=== PATIENT | female | born 1985 | race Caucasian/White ===

== ENCOUNTER 2016-10-26 10:11 | Emergency (ER) | payer OTHER ==
[~2016-10-26] VITALS: Ht 170.2 cm; Wt 99.0 kg
[2016-10-26 10:16] VITALS: BP 138/82
== END 2016-10-26 13:19 | disposition home or self-care (01) ==
LOC: ED 11:26
DX: R53.1 Weakness (principal); R41.82 Altered mental status, unspecified; J45.909 Unspecified asthma, uncomplicated
CPT/HCPCS: 70450; 93005; 99284

== ENCOUNTER 2017-12-09 19:20 | Emergency (ER) | payer OTHER ==
[~2017-12-09] VITALS: Ht 170.2 cm; Wt 102.8 kg
[2017-12-09 20:08] LABS: BASOPHILS # (AUTO) 0.02 x10^3/uL (0-0.1); BASOPHILS % (AUTO) 0 % (0-1); EOSINOPHILS % (AUTO) 2 % (1-7); LYMPHOCYTES # (AUTO) 4.87 x10^3/uL (1-3.4); LYMPHOCYTES % (AUTO) 50 % (22-44); MD NO; MEAN CORPUSCULAR HEMOGLOBIN 29.9 pg (27.0-34.8); MEAN CORPUSCULAR VOLUME 87.8 fL (80-100); MEAN PLATELET VOLUME 9.2 fL (7.4-10.4); MONOCYTES # (AUTO) 0.59 x10^3/uL (0.2-0.8); MONOCYTES % (AUTO) 6 % (2-9); NEUTROPHILS # (AUTO) 4.15 x10^3/uL (1.8-6.8); NEUTROPHILS % (AUTO) 42 % (42-75); PLATELET COUNT 281 x10^3/uL (130-400); RED BLOOD COUNT 4.56 x10^6/uL (3.82-5.3); RED CELL DISTRIBUTION WIDTH 12.6 % (9.6-15.2)
[2017-12-09 20:17] LABS: ALANINE AMINOTRANSFERASE 22 U/L (12-78); ALBUMIN 3.4 g/dL (3.4-5.0); ANION GAP 6 mmol/L (5-15); CALCIUM 9.4 mg/dL (8.5-10.1); CHLORIDE 109 mmol/L (98-107); CREATININE 1.19 mg/dL (0.55-1.02)
[2017-12-09] MEDS ORDERED: URSO500T8 PO ×2 (20:19)
[2017-12-09] MEDS ORDERED: NORG1TAB7 PO (20:19)
[2017-12-09] MEDS ORDERED: TYLENOL PO (20:20)
[2017-12-09 20:21] LABS: ALKALINE PHOSPHATASE 73 U/L (45-117); BILIRUBIN,TOTAL 0.1 mg/dL (0.2-1.0); TOTAL PROTEIN 7.8 g/dL (6.4-8.2)
[2017-12-09] MEDS ORDERED: OMNIPAQUE 350 MG/ML, 100ML BOTTLE ONE (21:00)
[2017-12-09] MEDS ORDERED: FLUT12HF2 INH (21:36)
[2017-12-09 21:50] LABS: MICROSCOPIC NOT IND
[2017-12-09 21:52] LABS: CULTURE INDICATED? NO
[2017-12-09] MEDS ORDERED: FENTANYL PF 100 MCG/2ML ONE (22:24)
[2017-12-09] MEDS ORDERED: FENTANYL PF 100 MCG/2ML IV ONE (22:30)
[2017-12-09 23:55] VITALS: BP 115/73
[2017-12-09] MEDS ORDERED: KETOROLAC 30 MG/1 ML ONE (23:59)
[2017-12-10] MEDS ORDERED: KETOROLAC 30 MG/1 ML IVPush ONE
== END 2017-12-10 00:27 | disposition home or self-care (01) ==
LOC: ED 21:53
DX: N83.292 Other ovarian cyst, left side (principal)
CPT/HCPCS: 36415; 74177; 76830; 80053; 81003; 83690; 84703; 85025; 96374; 96375; 99285; J1885; J3010; Q9967

== ENCOUNTER 2017-12-26 20:01 | Emergency (ER) | payer OTHER ==
[~2017-12-26] VITALS: Ht 172.7 cm; Wt 100.5 kg
[~2017-12-26 20:01] MED LIST: FLUT12HF2 INH; NORG1TAB7 PO; TYLENOL PO; URSO500T8 PO
[2017-12-26] MEDS ORDERED: SODIUM CHLORIDE FLUSH 10ML SYR IVF ONE (20:30)
[2017-12-26 20:58] LABS: MEAN CORPUSCULAR HEMOGLOBIN 30.7 pg (27.0-34.8); MEAN CORPUSCULAR HGB CONC 34.6 g/dL (32.4-35.8); MEAN CORPUSCULAR VOLUME 88.9 fL (80-100); MEAN PLATELET VOLUME 9.2 fL (7.4-10.4); PLATELET COUNT 305 x10^3/uL (130-400); RED BLOOD COUNT 4.67 x10^6/uL (3.82-5.3); RED CELL DISTRIBUTION WIDTH 12.6 % (9.6-15.2)
[2017-12-26] MEDS ORDERED: METOCLOPRAMIDE 5 MG/ML, 2ML ONE (21:08)
[2017-12-26] MEDS ORDERED: DIPHENHYDRAMINE 50 MG/ML, 1ML ONE (21:08)
[2017-12-26 21:12] LABS: ALANINE AMINOTRANSFERASE 24 U/L (12-78); ALBUMIN 3.8 g/dL (3.4-5.0); ANION GAP 7 mmol/L (5-15); CHLORIDE 109 mmol/L (98-107); CREATININE 1.07 mg/dL (0.55-1.02)
[2017-12-26 21:14] LABS: ALKALINE PHOSPHATASE 94 U/L (45-117); BILIRUBIN,TOTAL 0.2 mg/dL (0.2-1.0); TOTAL PROTEIN 7.9 g/dL (6.4-8.2)
[2017-12-26 21:18] LABS: BASOPHILS # (AUTO) 0.03 x10^3/uL (0-0.1); BASOPHILS % (AUTO) 0 % (0-1); EOSINOPHILS # (AUTO) 0.24 x10^3/uL (0-0.4); EOSINOPHILS % (AUTO) 3 % (1-7); LYMPHOCYTES # (AUTO) 4.63 x10^3/uL (1-3.4); LYMPHOCYTES % (AUTO) 56 % (22-44); MD SCAN; MONOCYTES # (AUTO) 0.61 x10^3/uL (0.2-0.8); MONOCYTES % (AUTO) 7 % (2-9); NEUTROPHILS # (AUTO) 2.78 x10^3/uL (1.8-6.8); NEUTROPHILS % (AUTO) 34 % (42-75)
[2017-12-26 21:24] LABS: MICROSCOPIC NOT IND
[2017-12-26 21:29] LABS: CULTURE INDICATED? NO
[2017-12-26] MEDS ORDERED: PLEASE ENTER WEIGHT MC SCH (21:30)
[2017-12-26] MEDS ORDERED: METOCLOPRAMIDE 5 MG/ML, 2ML IVPush ONE (21:30)
[2017-12-26] MEDS ORDERED: DIPHENHYDRAMINE 50 MG/ML, 1ML IVPush ONE (21:30)
[2017-12-26 21:41] LABS: FREE T4 (FREE THYROXINE) 1.07 ng/dL (0.76-1.46)
[2017-12-26 21:45] LABS: AMPHETAMINE SCREEN, URINE Negative (Negative); BARBITURATE SCREEN, URINE Negative (Negative); BENZODIAZEPINE SCREEN, URINE Negative (Negative); CANNABINOID SCREEN, URINE Negative (Negative); COCAINE SCREEN, URINE Negative (Negative); METHADONE SCREEN, URINE Negative (Negative); OPIATE SCREEN, URINE Positive (Negative)
[2017-12-26 22:34] VITALS: BP 105/52
== END 2017-12-26 23:07 | disposition home or self-care (01) ==
LOC: ED 21:55
DX: R10.84 Generalized abdominal pain (principal); J45.909 Unspecified asthma, uncomplicated; R41.82 Altered mental status, unspecified
CPT/HCPCS: 36415; 70450; 80053; 80307; 81003; 81025; 82140; 84439; 84443; 85025; 96374; 96375; 99285; J1200; J2765

== ENCOUNTER 2018-02-15 05:57 | Day surgery (SDC) | payer OTHER ==
[~2018-02-15] VITALS: Ht 170.2 cm; Wt 98.0 kg
[2018-02-15 06:45] VITALS: BP 110/77
[2018-02-15] MEDS ORDERED: SODIUM CHLORIDE 0.9% 1,000 ML IV SCH (06:47)
[2018-02-15 07:22] LABS: INTERNATIONAL NORMALIZED RATIO 0.93 (0.93-1.1); PROTHROMBIN TIME 9.7 Seconds (9.6-11.5)
[2018-02-15] MEDS ORDERED: LIDOCAINE-MPF 2%, 2ML ONE (07:26)
[2018-02-15] MEDS ORDERED: FLUMAZENIL 0.1 MG/1 ML, 5ML ONE (07:41)
[2018-02-15] MEDS ORDERED: FENTANYL PF 100 MCG/2ML ONE (07:41)
[2018-02-15] MEDS ORDERED: NALOXONE 1 MG/ML, 2ML ONE (07:41)
[2018-02-15] MEDS ORDERED: MIDAZOLAM 1 MG/ML, 5ML ONE (07:41)
[2018-02-15] MEDS ORDERED: ONDANSETRON ODT 4 MG ONE (09:17)
[2018-02-15] MEDS ORDERED: IBUPROFEN 600 MG TABLET ONE (09:18)
[2018-02-15] MEDS ORDERED: ONDANSETRON ODT 4 MG PO ONE (10:00)
[2018-02-15] MEDS ORDERED: IBUPROFEN 600 MG TABLET PO ONE (10:00)
== END 2018-02-15 10:15 | disposition home or self-care (01) ==
LOC: OUT 05:57
PROVIDERS: ATTEND Physician Assistant
DX: K74.3 Primary biliary cirrhosis (principal); J45.909 Unspecified asthma, uncomplicated; Z98.890 Other specified postprocedural states; Z72.89 Other problems related to lifestyle
CPT/HCPCS: 36415; 47000; 76942; 85610; 88307; 88313; 99156; 99157; J2250; J3010; J3490; J7030; Q0162; J2310

== ENCOUNTER → 2018-04-19 | Outpatient (CLI) | payer OTHER | END | disposition home or self-care (01) | LOC: PETCFH 12:05 | PROVIDERS: ATTEND Internal Medicine Gastroenterology | DX: R10.11 Right upper quadrant pain (principal); R11.0 Nausea; Z87.19 Personal history of other diseases of the digestive system | CPT/HCPCS: 78227; A9537 ==

== ENCOUNTER → 2018-05-11 | Outpatient (CLI) | payer OTHER ==
[~2018-05-11] MED LIST changes: +ACET-76 PO; +ALBU6.7H INH; +ONDA4TAB7 PO
== END | disposition home or self-care (01) ==
LOC: STAR 11:50
PROVIDERS: ATTEND Surgery
DX: Z02.9 Encounter for administrative examinations, unspecified (principal)

== ENCOUNTER 2018-05-15 06:25 | Day surgery (SDC) | payer OTHER ==
[~2018-05-15] VITALS: Ht 170.2 cm; Wt 99.0 kg
[2018-05-15] MEDS ORDERED: BUPIVACAINE/PF 0.25% ONE (06:48)
[2018-05-15 06:57] VITALS: BP 112/77
[2018-05-15] MEDS ORDERED: LACTATED RINGERS 1,000 ML IV SCH (06:57)
[2018-05-15 07:16] LABS: HCG UR SG 1.014 (1.003-1.030)
[2018-05-15] MEDS ORDERED: ONDANSETRON ODT 8 MG PO ONE (07:30)
[2018-05-15] MEDS ORDERED: ACETAMINOPHEN 500 MG TABLET PO ONE (07:30)
[2018-05-15] MEDS ORDERED: MIDAZOLAM 1 MG/ML, 2ML ONE ×2 (07:39→08:50)
[2018-05-15] MEDS ORDERED: PROPOFOL 10 MG/ML, 20ML ONE (07:40)
[2018-05-15] MEDS ORDERED: ROCURONIUM 10MG/ML,5ML ONE (07:40)
[2018-05-15] MEDS ORDERED: FENTANYL PF 100 MCG/2ML ONE ×3 (07:40→09:10)
[2018-05-15] MEDS ORDERED: NEOSTIGMINE 1 MG/ML, 10ML ONE (08:13)
[2018-05-15] MEDS ORDERED: SUCCINYLCHOLINE 20 MG/ML, 10ML ONE (08:13)
[2018-05-15] MEDS ORDERED: GLYCOPYRROLATE 0.2MG/1ML, 5ML ONE (08:13)
[2018-05-15] MEDS ORDERED: CEFAZOLIN 1,000 MG ONE (08:13)
[2018-05-15] MEDS ORDERED: OXYcodone 5 MG/5 ML ORAL.SOL UDC PO PRN (08:30)
[2018-05-15] MEDS ORDERED: ALBUTEROL/IPRATROPIUM 2.5MG/0.5MG, 3 ML NPPB PRN (08:30)
[2018-05-15] MEDS ORDERED: DIAZEPAM 5 MG/ML, 2ML IVPush PRN (08:30)
[2018-05-15] MEDS ORDERED: METOCLOPRAMIDE 5 MG/ML, 2ML IV PRN (08:30)
[2018-05-15] MEDS ORDERED: MEPERIDINE/PF 50 MG/ML ONE (08:52)
[2018-05-15] MEDS: MEPERIDINE/PF 25MG/0.5ML IVPush PRN ×2 (08:55→09:17)
[2018-05-15] MEDS: LORazepam 2 MG/ML, 1ML IVPush PRN ×2 (08:59→09:10)
[2018-05-15] MEDS: FENTANYL PF 100 MCG/2ML IV PRN ×2 (09:02→09:18)
[2018-05-15] MEDS ORDERED: LORazepam 2 MG/ML, 1ML ONE (09:11)
[2018-05-15] MEDS ORDERED: HYDROmorphone 2 MG/ML, 1ML ONE (09:46)
[2018-05-15] MEDS ORDERED: OXYcodone 5 MG/5 ML ORAL.SOL UDC ONE (09:47)
[2018-05-15] MEDS: HYDROmorphone 2 MG/ML, 1ML IVPush PRN ×4 (09:50→10:17)
== END 2018-05-15 15:50 | disposition home or self-care (01) ==
LOC: OUT 06:25
PROVIDERS: ATTEND Surgery
DX: K82.8 Other specified diseases of gallbladder (principal); K74.3 Primary biliary cirrhosis; F10.21 Alcohol dependence, in remission; J45.909 Unspecified asthma, uncomplicated; Z87.39 Personal history of other diseases of the musculoskeletal system and connective tissue
CPT/HCPCS: 47379; 47562; 81025; 88304; 88307; 88313; J0330; J0690; J1170; J2060; J2175; J2704; J2710; J3010; J3490; J7120; Q0162; J2250

== ENCOUNTER 2018-11-09 20:47 | Emergency (ER) | payer OTHER ==
[~2018-11-09] VITALS: Ht 170.2 cm; Wt 101.3 kg
[2018-11-09] MEDS ORDERED: MORPHINE SULFATE 4 MG/ML, 1ML ONE (21:09)
[2018-11-09] MEDS ORDERED: ONDANSETRON 2MG/ML, 2ML ONE (21:09)
[2018-11-09 21:30] LABS: BASOPHILS # (AUTO) 0.04 x10^3/uL (0-0.1); BASOPHILS % (AUTO) 0 % (0-1); EOSINOPHILS # (AUTO) 0.22 x10^3/uL (0-0.4); EOSINOPHILS % (AUTO) 2 % (1-7); LYMPHOCYTES # (AUTO) 3.83 x10^3/uL (1-3.4); LYMPHOCYTES % (AUTO) 35 % (22-44); MD NO; MEAN CORPUSCULAR HEMOGLOBIN 29.8 pg (27.0-34.8); MEAN CORPUSCULAR HGB CONC 33.2 g/dL (32.4-35.8); MEAN CORPUSCULAR VOLUME 89.6 fL (80-100); MEAN PLATELET VOLUME 8.9 fL (7.4-10.4); MONOCYTES # (AUTO) 0.56 x10^3/uL (0.2-0.8); MONOCYTES % (AUTO) 5 % (2-9); NEUTROPHILS # (AUTO) 6.42 x10^3/uL (1.8-6.8); NEUTROPHILS % (AUTO) 58 % (42-75); PLATELET COUNT 360 x10^3/uL (130-400); RED BLOOD COUNT 4.76 x10^6/uL (3.82-5.3); RED CELL DISTRIBUTION WIDTH 12.7 % (9.6-15.2)
[2018-11-09] MEDS ORDERED: ONDANSETRON 2MG/ML, 2ML IVPush ONE (21:30)
[2018-11-09] MEDS ORDERED: SODIUM CHLORIDE FLUSH 10ML SYR IVF ONE (21:30)
[2018-11-09] MEDS ORDERED: MORPHINE SULFATE 4 MG/ML, 1ML IVPush PRN (21:30)
--- NOTE | 2018-11-09 21:30 | NUR ---
PT AMB TO BR AND BACK TO ROOM WITH STEADY GAIT.
--- NOTE | 2018-11-09 21:32 | NUR ---
PT MEDICATED PER EMAR. PT TOLERATED WELL.
--- NOTE | 2018-11-09 21:32 | NUR ---
FIRST CONTACT WITH PT. PT JUST HAD A BAD EPISODE OF ABD PAIN WITH NAUSEA. SICK FOR PAST COUPLE DAYS. HX OF CHOLESTECTOMY. PT DENIES V/D AT THIOS TIME. PT'S AOX4. RESPS EVEN AND UNLABORED. BP/SPO2 MONITORS IN PLACE. CALL LIGHT WITHIN REACH.
--- NOTE | 2018-11-09 21:39 | NUR ---
PT TO US NOW.
[2018-11-09 21:42] LABS: ALANINE AMINOTRANSFERASE 22 U/L (12-78); ALBUMIN 3.5 g/dL (3.4-5.0); ANION GAP 8 mmol/L (5-15); CALCIUM 9.3 mg/dL (8.5-10.1); CHLORIDE 107 mmol/L (98-107); CREATININE 1.15 mg/dL (0.55-1.02)
[2018-11-09 21:45] LABS: ALKALINE PHOSPHATASE 85 U/L (45-117); BILIRUBIN,TOTAL 0.2 mg/dL (0.2-1.0); TOTAL PROTEIN 7.8 g/dL (6.4-8.2)
[2018-11-09 21:52] LABS: MICROSCOPIC AUTO
[2018-11-09 21:54] LABS: CULTURE INDICATED? YES
--- NOTE | 2018-11-09 21:59 | NUR ---
PT BACK TO ROOM FROM US NOW.
[2018-11-09 22:15] VITALS: BP 120/65
--- NOTE | 2018-11-09 22:32 | NUR ---
PT GIVEN DC INSTRUCTIONS AND SCRIPTS. PT EDUCATED REGARDING DC MEDICATIONS. PT'S AOX4. RESPS EVEN AND UNLABORED. PT AMB TO DC WITH STEADY GAIT. NO ACUTE DISTRESS AT DC.
== END 2018-11-09 22:33 | disposition home or self-care (01) ==
LOC: ED 22:08
DX: R10.11 Right upper quadrant pain (principal); J45.909 Unspecified asthma, uncomplicated; E66.9 Obesity, unspecified; Z90.49 Acquired absence of other specified parts of digestive tract
CPT/HCPCS: 36415; 76700; 80053; 81001; 83690; 85025; 87086; 96374; 99284; J2405

== ENCOUNTER 2019-01-05 13:28 | Outpatient (CLI) | payer OTHER | END 2019-01-05 23:59 | disposition home or self-care (01) | LOC: CFH 13:28 | PROVIDERS: ATTEND Nurse Practitioner | DX: N93.9 Abnormal uterine and vaginal bleeding, unspecified (principal); E03.8 Other specified hypothyroidism; R82.90 Unspecified abnormal findings in urine | CPT/HCPCS: 76536; 76856 ==

== ENCOUNTER → 2019-03-29 | Outpatient (CLI) | payer OTHER ==
[~2019-03-29] MED LIST changes: -ALBU6.7H INH; +ALBU6.7H8 INH; -URSO500T8 PO; +URSO500T9 PO
== END | disposition home or self-care (01) ==
LOC: CFH 13:23
PROVIDERS: ATTEND Internal Medicine
DX: R05 Cough (principal); Z82.49 Family history of ischemic heart disease and other diseases of the circulatory system; Z83.3 Family history of diabetes mellitus
CPT/HCPCS: 71046

== ENCOUNTER 2019-07-18 17:23 | Emergency (ER) | payer OTHER ==
[~2019-07-18] VITALS: Ht 170.2 cm; Wt 95.8 kg
--- NOTE | 2019-07-18 19:48 | NUR ---
PT WALKED BACK FROM [facility] AT THIS TIME.
[2019-07-18 21:19] LABS: BASOPHILS # (AUTO) 0.03 x10^3/uL (0-0.1); BASOPHILS % (AUTO) 0 % (0-1); EOSINOPHILS # (AUTO) 0.26 x10^3/uL (0-0.4); EOSINOPHILS % (AUTO) 3 % (1-7); LYMPHOCYTES # (AUTO) 4.36 x10^3/uL (1-3.4); LYMPHOCYTES % (AUTO) 49 % (22-44); MD NO; MEAN CORPUSCULAR HEMOGLOBIN 29.7 pg (27.0-34.8); MEAN CORPUSCULAR HGB CONC 33.4 g/dL (32.4-35.8); MEAN CORPUSCULAR VOLUME 89.1 fL (80-100); MEAN PLATELET VOLUME 9.2 fL (7.4-10.4); MONOCYTES # (AUTO) 0.56 x10^3/uL (0.2-0.8); MONOCYTES % (AUTO) 6 % (2-9); NEUTROPHILS # (AUTO) 3.64 x10^3/uL (1.8-6.8); NEUTROPHILS % (AUTO) 41 % (42-75); PLATELET COUNT 301 x10^3/uL (130-400); RED BLOOD COUNT 4.99 x10^6/uL (3.82-5.3); RED CELL DISTRIBUTION WIDTH 12.4 % (9.6-15.2)
[2019-07-18 21:31] LABS: ALANINE AMINOTRANSFERASE 21 U/L (12-78); ALBUMIN 3.6 g/dL (3.4-5.0); ANION GAP 5 mmol/L (5-15); CALCIUM 9.1 mg/dL (8.5-10.1); CHLORIDE 108 mmol/L (98-107); CREATININE 1.09 mg/dL (0.55-1.02)
[2019-07-18 21:35] LABS: ALKALINE PHOSPHATASE 84 U/L (45-117); BILIRUBIN,TOTAL 0.3 mg/dL (0.2-1.0); TOTAL PROTEIN 7.9 g/dL (6.4-8.2); TROPONIN I < 0.015 ng/mL (0.000-0.045)
[2019-07-18] MEDS ORDERED: SODIUM CHLORIDE 0.9% 1,000ML IVBOLUS ONE (22:00)
--- NOTE | 2019-07-18 22:01 | NUR ---
REPORT RECEIVED FROM ADAMA BIRD.
--- NOTE | 2019-07-18 22:06 | NUR ---
REPORT TO GIBSON GALAN.
[2019-07-19 00:24] VITALS: BP 115/91
== END 2019-07-19 02:28 | disposition home or self-care (01) ==
LOC: ED 07-19 02:00
DX: R42 Dizziness and giddiness (principal); R00.2 Palpitations; R06.02 Shortness of breath; J45.909 Unspecified asthma, uncomplicated; Z94.9 Transplanted organ and tissue status, unspecified; Z86.39 Personal history of other endocrine, nutritional and metabolic disease
CPT/HCPCS: 36415; 71045; 80053; 83880; 84484; 85025; 93005; 96360; 96361; 99285; J7030

== ENCOUNTER → 2020-01-09 | Outpatient (CLI) | payer OTHER ==
[~2020-01-09] MED LIST changes: +SINCALIDE (KINEVAC) 5 MCG ONE
== END | disposition home or self-care (01) ==
LOC: RAD 10:45
PROVIDERS: ATTEND Internal Medicine Gastroenterology
DX: R10.11 Right upper quadrant pain (principal)
CPT/HCPCS: 78226; A9537; J2805

== ENCOUNTER 2020-02-16 21:14 | Emergency (ER) | payer OTHER ==
[~2020-02-16] VITALS: Ht 170.2 cm; Wt 107.8 kg
[~2020-02-16 21:14] MED LIST changes: -SINCALIDE (KINEVAC) 5 MCG ONE
--- NOTE | 2020-02-16 21:35 | NUR ---
PT AMBULATED STEADILY TO ROOM WITH TRIAGE TECH AND FRIEND. PT TEARFUL, REPORTING ACUTE ON CHRONIC INTERMITTENT EPIGASTRIC/RUQ PAIN THAT IS "WORSE THAN USUAL". PAIN RADIATES TO SHOULDER BLADES AND TO BACK. HX OF CHOLANGITIS, MIGDALIA, AND SEVERAL LIVER BIOPSIES. DENIES FEVER/N/V/DYSURIA/DIARRHEA WITH CURRENT EPISODE. DENIES CP/SOB. PT AMBULATED STEADILY TO BATHROOM TO PROVIDE UA. BP/SPO2/ECG MONITORING IN PLACE. NSR ON MONITOR
[2020-02-16] MEDS ORDERED: ONDANSETRON 2MG/ML, 2ML ONE (21:43)
[2020-02-16] MEDS ORDERED: MORPHINE SULFATE 4 MG/ML, 1ML ONE ×2 (21:43→22:30)
[2020-02-16] MEDS: MORPHINE SULFATE 4 MG/ML, 1ML IVPush PRN ×2 (21:47→22:32)
--- NOTE | 2020-02-16 21:53 | NUR ---
IV ESTABLISHED BY TECH. TOM MEDICATED PER FELIX FOR 12/06 ABD PAIN AND NAUSEA. Addendum: 02/16/20 at 2153 by GERARD HERSON COLLECTED AND SENT TO LAB
[2020-02-16] MEDS ORDERED: ONDANSETRON 2MG/ML, 2ML IVPush ONE (22:00)
[2020-02-16] MEDS ORDERED: SODIUM CHLORIDE FLUSH 10ML SYR IVF ONE (22:00)
[2020-02-16] MEDS ORDERED: SODIUM CHLORIDE 0.9% 1,000ML IVBOLUS ONE (22:00)
[2020-02-16 22:09] LABS: BASOPHILS # (AUTO) 0.03 x10^3/uL (0-0.1); BASOPHILS % (AUTO) 0 % (0-1); EOSINOPHILS # (AUTO) 0.19 x10^3/uL (0-0.4); EOSINOPHILS % (AUTO) 2 % (1-7); LYMPHOCYTES # (AUTO) 3.33 x10^3/uL (1-3.4); LYMPHOCYTES % (AUTO) 33 % (22-44); MD NO; MEAN CORPUSCULAR HEMOGLOBIN 29.1 pg (27.0-34.8); MEAN CORPUSCULAR HGB CONC 33.1 g/dL (32.4-35.8); MEAN CORPUSCULAR VOLUME 87.8 fL (80-100); MEAN PLATELET VOLUME 8.6 fL (7.4-10.4); MONOCYTES # (AUTO) 0.68 x10^3/uL (0.2-0.8); MONOCYTES % (AUTO) 7 % (2-9); NEUTROPHILS # (AUTO) 5.75 x10^3/uL (1.8-6.8); NEUTROPHILS % (AUTO) 58 % (42-75); PLATELET COUNT 320 x10^3/uL (130-400); RED BLOOD COUNT 4.78 x10^6/uL (3.82-5.3); RED CELL DISTRIBUTION WIDTH 12.3 % (9.6-15.2)
[2020-02-16 22:28] LABS: MICROSCOPIC INDICATED
--- NOTE | 2020-02-16 22:32 | NUR ---
PT MEDICATED PER EMAR FOR CONTINUED PAIN
[2020-02-16 22:47] LABS: ALBUMIN 3.1 g/dL (3.4-5.0); ANION GAP 8 mmol/L (5-15); CHLORIDE 104 mmol/L (98-107); CREATININE 0.92 mg/dL (0.55-1.02)
[2020-02-16 22:51] LABS: ALKALINE PHOSPHATASE 87 U/L (45-117); BILIRUBIN,TOTAL 0.2 mg/dL (0.2-1.0); TOTAL PROTEIN 7.4 g/dL (6.4-8.2)
[2020-02-16 22:59] LABS: ALANINE AMINOTRANSFERASE 33 U/L (12-78)
--- NOTE | 2020-02-16 23:00 | NUR ---
PT REPORTS BRIEF RELIEF FROM PAIN. REMAINS TEARFUL AND HAS PAGED TO PRESCHOOL DIRECTOR MULTIPLE TIMES FOR PAIN MEDICATIONS. FRIEND TO PRESCHOOL DIRECTOR MULTIPLE TIMES REQUESTING PAIN MEDICATIONS. ERP AWARE OF CONTINUED PAIN. AWAITING ORDERS.
[2020-02-16] MEDS ORDERED: HYDROmorphone 1 MG/ML, 1ML INJ ONE (23:22)
[2020-02-16] MEDS ORDERED: HYDROmorphone 1 MG/ML, 1ML INJ IVPush PRN (23:30)
[2020-02-16] MEDS ORDERED: HYDROmorphone 2 MG/ML, 1ML IVPush PRN (23:30)
--- NOTE | 2020-02-16 23:36 | NUR ---
PT MEDICATED FOR PAIN BY TASK RN. PT TO CT AT THIS TIME.
[2020-02-16] MEDS ORDERED: OMNIPAQUE 350 MG/ML, 100ML BOTTLE ONE (23:38)
--- NOTE | 2020-02-16 23:54 | NUR ---
PT RETURNED FROM CT. SUPINE IN [facility]. SPO2 >90% ON RA.
--- NOTE | 2020-02-17 01:03 | NUR ---
REPORT FROM DEION GALAN ASSUMING CARE OF PT AT THIS TIME
[2020-02-17 01:26] VITALS: BP 141/82
--- NOTE | 2020-02-17 02:13 | NUR ---
PT BACK FROM IMAGING RESTING ON [facility]
== END 2020-02-17 03:43 | disposition home or self-care (01) ==
LOC: ED 21:44
DX: K29.70 Gastritis, unspecified, without bleeding (principal); N83.291 Other ovarian cyst, right side; R93.5 Abnormal findings on diagnostic imaging of other abdominal regions, including retroperitoneum; J45.909 Unspecified asthma, uncomplicated
CPT/HCPCS: 36415; 74177; 80053; 81001; 83690; 84703; 85025; 87086; 93005; 93976; 96361; 96374; 96375; 96376; 99285; J1170; J2270; J2405; J7030; Q9967